=== PATIENT | female | born 1980 | race Caucasian/White ===

== ENCOUNTER → 2019-07-31 | Outpatient (CLI) | payer BC ==
[~2019-07-31] MED LIST: ALBU2.5V8 IH; CETI10TA22 PO; CITA20TA6 PO; FLUT50DI IH; NORE1TAB85 PO
--- NOTE | 2019-07-31 16:34 | KCIC ---
CHEST PA LATERAL History: Cough Comparison: 02/04/2009 two-view chest x-ray exam. Findings: PA and lateral views of chest were obtained. The cardiomediastinal silhouette is normal. Pulmonary vasculature is normal. The lungs are clear. No pleural effusion or pneumothorax is seen. There is no acute bone abnormality. IMPRESSION: No acute cardiopulmonary process. Electronically signed by: Quinn Gurrola MD (07/31/2019 4:31 PM) [facility]
== END | disposition home or self-care (01) ==
LOC: KCIC 15:26
PROVIDERS: ATTEND Internal Medicine Gastroenterology
DX: R05 Cough (principal)
CPT/HCPCS: 71046

== ENCOUNTER → 2021-01-29 | Outpatient (CLI) | payer BC ==
[~2021-01-29] MED LIST changes: -CETI10TA22 PO; +CETI10TA74 PO
--- NOTE | 2021-01-29 17:03 | KCIC ---
Clinical indications: Globus sensation. Difficulty swallowing. Findings: The longitudinal and AP and transverse dimensions of the right lobe of the thyroid gland ar e 5.0 cm x 1.7 cm x 1.4 cm respectively. There is a hypoechoic nodule within the anterior mid aspect measuring 9 mm in greatest caliber. There are small echodensities within it consistent with small yaima cifications. This is an ACR TI RADS type 5 lesion; FNA if greater than or equal to 10 mm; Follow-up i f greater than or equal to 5 mm. Within the superior pole of the right lobe, there is a 7 mm hypoecho ic nodule. This is considered an ACR TI RADS type 4 lesion; FNA if greater than or equal to 15 mm and follow-up if greater than or equal to 10 mm. The longitudinal and AP and transverse dimensions of the left lobe are 4.9 cm x 2.4 cm x 2.7 cm respe ctively. There is a solid isoechoic nodule within the mid to lower aspect of the left lobe which demo nstrates some smaller hypoechoic components which measures 27 mm in greatest dimension. The borders a re smooth. Few small echodensities are seen within it which could represent calcifications. Therefore , this is considered an ACR TI RADS type 4 lesion. FNA is recommended. The isthmus is homogeneous in appearance and measures 5 mm in thickness. Impression: Bilateral thyroid nodules. Recommend FNA of prominent left lobe thyroid nodule. Recommend thyroid sonographic follow-up in 6 months with regard to the right lobe thyroid nodules. Reference: ACR thyroid imaging, reporting and data system (TI-RADS): White paper of the ACR TI-RADS c ommittee; J[employer]RNA[employer] OF THE [employer]; volume 14, issue 5, pages 587-595 (January 2017) Electronically signed by: Benjamin Wade MD (01/29/2021 5:01 PM) [id number]
== END ==
LOC: KCIC US 15:28
PROVIDERS: ATTEND Internal Medicine Gastroenterology
DX: E04.2 Nontoxic multinodular goiter (principal); F45.8 Other somatoform disorders
CPT/HCPCS: 76536

== ENCOUNTER → 2021-02-17 | Outpatient (CLI) | payer BC ==
--- NOTE | 2021-02-17 13:22 | RAD ---
EXAMINATION: Ultrasound-guided fine-needle aspiration of left thyroid nodule, 02/17/2021 10:18 AM CLINICAL INDICATION: Suspicious left thyroid nodule COMPARISON: Thyroid ultrasound 01/29/2021 FINDINGS/TECHNIQUE: The purpose of the procedure, and risks and benefits were explained to the patient. Informed consent was obtained. A timeout was performed. Initial ultrasound images identified the dominant left thyroid nodule. The skin overlying the patient 's left neck was marked, prepped, and draped in standard sterile fashion. Skin and subcutaneous soft tissue were anesthetized with 1% lidocaine. Next, using continuous ultrasound guidance, four 25-gauge fine-needle aspiration samples were obtained of the thyroid nodule and given to the confectionery laboratory manager f or analysis. The skin was cleansed and covered with a dressing. The patient tolerated the procedure w ell and left in stable condition. IMPRESSION: Technically successful, ultrasound-guided fine needle aspiration of suspicious left thyroid nodule. Electronically signed by: Bridget Jean Baptiste MD (02/17/2021 1:20 PM) [id number]
== END | disposition home or self-care (01) ==
LOC: US 10:04
PROVIDERS: ATTEND Physician Assistant
DX: E04.1 Nontoxic single thyroid nodule (principal); Z79.899 Other long term (current) drug therapy
CPT/HCPCS: 10005